=== PATIENT | female | born 1990 | race Caucasian/White ===

== ENCOUNTER 2016-11-27 09:53 | Outpatient (CLI) | payer OTHER ==
[~2016-11-27] VITALS: Ht 160 cm; Wt 96.0 kg
[~2016-11-27 09:53] MED LIST: ASPIR 8181 M1 PO; BENADRYL25 MG PO; CIPRO500 MG PO; ENDOCET 5-3251 EACH PO; IBUPROFEN800 MG PO; PRENATAL TABLE1 EAC3 PO; SPRINTEC1 EACH PO
[2016-11-27 11:05] LABS: EOSINOPHIL (%) 0 % (0-5); HEMATOCRIT 30.9 % (36.0-46.0); IMMATURE GRANULOCYTE (%) 0.8 % (0.0-0.7); IMMATURE GRANULOCYTE COUNT 0.1 K/uL; INSTRUMENT ABS NEUTROPHIL CT 15.5 K/uL; LYMPHOCYTE COUNT 0.6 K/uL (1.0-2.8); MCH 28.3 PG (29.0-34.0); MCV 83.3 FL (83-99); MEAN PLAT.VOLUME 10.7 uM^3 (9.5-12.4); MONOCYTE (%) 4.6 % (3-12); MONOCYTE COUNT 0.8 K/uL (0-0.8); NEUTROPHIL (%) 90.9 % (45-76); NEUTROPHIL COUNT 15.5 K/uL (1.8-6.4); PLATELET COUNT 162 K/uL (156-360); RBC DIS.WIDTH-CV 13.1 % (11.8-14.6); RBC DIS.WIDTH-SD 39.9 % (39-53); RED BLOOD COUNT 3.71 M/uL (3.80-5.20); WHITE BLOOD COUNT 17.1 K/uL (4.1-10.2)
[2016-11-27 11:10] LABS: ADD MIUA? YES; BILIRUBIN NEGATIVE; BLOOD LARGE; COLOR YELLOW ((YELLOW)); GLUCOSE (STRIP) NEGATIVE; KETONES 5; LEUKOCYTES TRACE; NITRITE NEGATIVE; PROTEIN (STRIP) 30; SPECIFIC GRAVITY 1.019 (1.000-1.030); UROBILINOGEN 0.2 MG/DL (0.2-1.0)
[2016-11-27 11:19] LABS: BACTERIA RARE /HPF; EPITHELIAL CELLS 1+ /HPF; MUCUS TRACE /LPF; RED BLOOD CELLS 20-30 /HPF (0-5); UCUL ADDED? NO; URIC ACID CRYSTALS 1+ /HPF
[2016-11-27 11:19] LABS: CHLORIDE 104 mEq/L (99-109); POTASSIUM 3.1 mEq/L (3.7-5.4); SODIUM 130 mEq/L (136-147)
[2016-11-27 11:22] LABS: GLUCOSE 113 mg/dL (70-99)
[2016-11-27 11:23] LABS: ANION GAP 9 MEQ/L (2-14); TOTAL BILIRUBIN 0.5 mg/dL (0.0-1.0)
[2016-11-27 11:25] LABS: ALKALINE PHOSPHATASE 72 IU/L (3-129); GFR ESTIMATE (CALCULATED) > 59 mL/min/
[2016-11-27 11:26] LABS: UREA NITROGEN (BUN) 5 mg/dL (9-23)
[2016-11-27 14:05] VITALS: BP 103/61
[2016-11-27] MEDS ORDERED: ASPIR 8181 M1 PO (14:08)
[2016-11-27 19:30] VITALS: BP 93/53
[2016-11-27 23:24] VITALS: BP 101/53
[2016-11-28 03:15] VITALS: BP 108/59
[2016-11-28 06:15] LABS: EOSINOPHIL (%) 1.1 % (0-5); EOSINOPHIL COUNT 0.1 K/uL (0-0.3); HEMATOCRIT 29.2 % (36.0-46.0); IMMATURE GRANULOCYTE (%) 0.6 % (0.0-0.7); IMMATURE GRANULOCYTE COUNT 0.1 K/uL; INSTRUMENT ABS NEUTROPHIL CT 8.8 K/uL; LYMPHOCYTE COUNT 1.4 K/uL (1.0-2.8); MCH 28.4 PG (29.0-34.0); MCHC 33.2 G/DL (30.0-36.0); MCV 85.6 FL (83-99); MEAN PLAT.VOLUME 10.4 uM^3 (9.5-12.4); MONOCYTE (%) 6.2 % (3-12); MONOCYTE COUNT 0.7 K/uL (0-0.8); NEUTROPHIL (%) 79.3 % (45-76); NEUTROPHIL COUNT 8.8 K/uL (1.8-6.4); PLATELET COUNT 153 K/uL (156-360); RBC DIS.WIDTH-CV 13.6 % (11.8-14.6); RBC DIS.WIDTH-SD 41.7 % (39-53); RED BLOOD COUNT 3.41 M/uL (3.80-5.20); WHITE BLOOD COUNT 11.1 K/uL (4.1-10.2)
[2016-11-28 06:41] LABS: ANION GAP 7 MEQ/L (2-14); CHLORIDE 110 MEQ/L (99-109); GFR ESTIMATE (CALCULATED) > 59 mL/min/; SAMPLE HEMOLYSIS CHECK 0; SAMPLE ICTERIC CHECK 0; SAMPLE LIPEMIA CHECK 0; UREA NITROGEN (BUN) 5 mg/dL (9-23)
[2016-11-28 06:43] LABS: GLUCOSE 69 mg/dL (70-99); POTASSIUM 3.8 MEQ/L (3.7-5.4); SODIUM 138 MEQ/L (136-147)
[2016-11-28 06:59] VITALS: BP 97/60
[2016-11-28 11:33] VITALS: BP 100/57
[2016-11-28 14:47] VITALS: BP 104/50
[2016-11-28] MEDS ORDERED: BACTRIM,SEPT1 TABLET PO (15:38)
[2016-11-28] MEDS ORDERED: MACROBID100 MG PO (15:39)
== END 2016-11-28 16:03 | disposition home or self-care (01) ==
LOC: EME 09:53 → LDRP-OP 09:53 → EME 13:51 → EDSTATUS 13:54 → 2WEST 13:54
PROVIDERS: Emergency Medicine; Obstetrics & Gynecology
DX: O23.02 Infections of kidney in pregnancy, second trimester (principal); Z3A.21 21 weeks gestation of pregnancy; O99.342 Other mental disorders complicating pregnancy, second trimester; F41.8 Other specified anxiety disorders; O09.292 Supervision of pregnancy with other poor reproductive or obstetric history, second trimester; O09.892 Supervision of other high risk pregnancies, second trimester
CPT/HCPCS: 59025; 80048; 80053; 81003; 84439; 84443; 84702; 85025; 87040; 87086; 93005; 99281; 99285; G0378; J0696; J7030; J7050

== ENCOUNTER 2016-11-29 22:28 | Outpatient (CLI) | payer OTHER ==
[~2016-11-29] VITALS: Ht 160 cm; Wt 96.7 kg
[~2016-11-29 22:28] MED LIST changes: +BACTRIM,SEPT1 TABLET PO; +MACROBID100 MG PO
[2016-11-29 23:05] LABS: MCH 28.3 PG (29.0-34.0); MCHC 33.6 G/DL (30.0-36.0); MCV 84.2 FL (83-99); MEAN PLAT.VOLUME 10.1 uM^3 (9.5-12.4); PLATELET COUNT 163 K/uL (156-360); RBC DIS.WIDTH-SD 39.8 % (39-53); RED BLOOD COUNT 3.92 M/uL (3.80-5.20); WHITE BLOOD COUNT 8.2 K/uL (4.1-10.2)
[2016-11-29 23:16] LABS: CHLORIDE 105 mEq/L (99-109); POTASSIUM 4.1 mEq/L (3.7-5.4); SODIUM 136 mEq/L (136-147)
[2016-11-29 23:19] LABS: GLUCOSE 83 mg/dL (70-99)
[2016-11-29 23:20] LABS: ANION GAP 12 MEQ/L (2-14)
[2016-11-29 23:21] LABS: TOTAL BILIRUBIN 0.4 mg/dL (0.0-1.0)
[2016-11-29 23:22] LABS: ALKALINE PHOSPHATASE 78 IU/L (3-129); GFR ESTIMATE (CALCULATED) > 59 mL/min/
[2016-11-29 23:23] LABS: UREA NITROGEN (BUN) 7 mg/dL (9-23)
[2016-11-29 23:33] LABS: QUANTITATIVE HCG 11923.9 MIU/ML
[2016-11-30] VITALS (7 sets, daily range): BP systolic 88–118; BP diastolic 50–74
[2016-11-30 00:01] LABS: ADD MIUA? YES; BILIRUBIN NEGATIVE; BLOOD LARGE; COLOR STRAW ((YELLOW)); GLUCOSE (STRIP) NEGATIVE; KETONES NEGATIVE; LEUKOCYTES NEGATIVE; NITRITE NEGATIVE; PROTEIN (STRIP) NEGATIVE; SPECIFIC GRAVITY 1.009 (1.000-1.030); UROBILINOGEN 0.2 MG/DL (0.2-1.0)
[2016-11-30 00:05] LABS: BACTERIA NONE SEEN /HPF; EPITHELIAL CELLS RARE /HPF; MUCUS TRACE /LPF; UCUL ADDED? NO; WHITE BLOOD CELLS 0-5 /HPF (0-5)
[2016-11-30 22:25] LABS: CANDIDA DNA PROBE NEGATIVE; GARDNERELLA DNA PROBE NEGATIVE; INTERNAL CONTROL VALID? YES
[2016-12-01 03:04] VITALS: BP 93/52
[2016-12-01 07:51] VITALS: BP 107/55
[2016-12-01 10:59] VITALS: BP 102/63
[2016-12-01 14:59] VITALS: BP 119/67
[2016-12-01 20:05] VITALS: BP 114/67
[2016-12-02] MEDS ORDERED: PROGESTERONE200 MG VG (05:43)
[2016-12-02 06:04] VITALS: BP 97/48
== END 2016-12-02 08:50 | disposition home or self-care (01) ==
LOC: LDRP-OP 22:28 → EME 22:28 → 2WEST 11-30 04:54
PROVIDERS: Obstetrics & Gynecology
DX: O23.02 Infections of kidney in pregnancy, second trimester (principal); Z3A.21 21 weeks gestation of pregnancy; O26.872 Cervical shortening, second trimester; O99.012 Anemia complicating pregnancy, second trimester
CPT/HCPCS: 59025; 76770; 76805; 80053; 81003; 84702; 85027; 87086; 87480; 87510; 87660; 99281; 99285; G0378; J0696; J2405; J7030; J7050; J7120

== ENCOUNTER 2017-04-04 07:01 | Inpatient (IN) | payer OTHER ==
[~2017-04-04] VITALS: Ht 160 cm; Wt 102.5 kg
[2017-04-04] VITALS (25 sets, daily range): BP systolic 111–163; BP diastolic 58–97
[~2017-04-04 07:01] MED LIST changes: +PROGESTERONE200 MG VG
[2017-04-04 09:36] LABS: BASOPHIL COUNT 0.1 K/uL (0-0.1); EOSINOPHIL (%) 1.1 % (0-5); EOSINOPHIL COUNT 0.1 K/uL (0-0.3); HEMATOCRIT 30.2 % (36.0-46.0); IMMATURE GRANULOCYTE (%) 0.7 % (0.0-0.7); IMMATURE GRANULOCYTE COUNT 0.1 K/uL; INSTRUMENT ABS NEUTROPHIL CT 6.8 K/uL; LYMPHOCYTE COUNT 2.1 K/uL (1.0-2.8); MCH 25.8 PG (29.0-34.0); MCHC 32.8 G/DL (30.0-36.0); MCV 78.9 FL (83-99); MEAN PLAT.VOLUME 11.3 uM^3 (9.5-12.4); MONOCYTE (%) 7.2 % (3-12); MONOCYTE COUNT 0.7 K/uL (0-0.8); NEUTROPHIL (%) 69.1 % (45-76); NEUTROPHIL COUNT 6.8 K/uL (1.8-6.4); PLATELET COUNT 178 K/uL (156-360); RBC DIS.WIDTH-SD 36.8 % (39-53); RED BLOOD COUNT 3.83 M/uL (3.80-5.20); WHITE BLOOD COUNT 9.8 K/uL (4.1-10.2)
[2017-04-05] VITALS (11 sets, daily range): BP systolic 117–138; BP diastolic 57–87
[2017-04-06 07:20] LABS: BASOPHIL COUNT 0.1 K/uL (0-0.1); EOSINOPHIL (%) 1.5 % (0-5); EOSINOPHIL COUNT 0.2 K/uL (0-0.3); HEMATOCRIT 29.1 % (36.0-46.0); IMMATURE GRANULOCYTE (%) 0.7 % (0.0-0.7); IMMATURE GRANULOCYTE COUNT 0.1 K/uL; LYMPHOCYTE COUNT 1.9 K/uL (1.0-2.8); MCH 25.3 PG (29.0-34.0); MCHC 31.6 G/DL (30.0-36.0); MCV 79.9 FL (83-99); MEAN PLAT.VOLUME 11.2 uM^3 (9.5-12.4); MONOCYTE (%) 4.9 % (3-12); MONOCYTE COUNT 0.6 K/uL (0-0.8); NEUTROPHIL (%) 77.9 % (45-76); PLATELET COUNT 182 K/uL (156-360); RBC DIS.WIDTH-CV 13.3 % (11.8-14.6); RBC DIS.WIDTH-SD 37.8 % (39-53); RED BLOOD COUNT 3.64 M/uL (3.80-5.20); WHITE BLOOD COUNT 12.8 K/uL (4.1-10.2)
== END 2017-04-06 12:40 | disposition home or self-care (01) | DRG 774 ==
LOC: LDRP-OP → 2WEST 07:02 → LDRP-OP 08:25 → 2WEST 04-05 04:07 → LDRP-OP 05-11 16:37
PROVIDERS: Advanced Practice Midwife
PROC: 10907ZC Drainage of Amniotic Fluid, Therapeutic from Products of Conception, Via Natural or Artificial Opening (ICD-10-PCS; principal; 2017-04-05)
PROC: 10E0XZZ Delivery of Products of Conception, External Approach (ICD-10-PCS; principal; 2017-04-05)
PROC: 0U7C7ZZ Dilation of Cervix, Via Natural or Artificial Opening (ICD-10-PCS; principal; 2017-04-05)
PROC: 3E0R3BZ Introduction of Anesthetic Agent into Spinal Canal, Percutaneous Approach (ICD-10-PCS; principal; 2017-04-05)
PROC: 00HU33Z Insertion of Infusion Device into Spinal Canal, Percutaneous Approach (ICD-10-PCS; principal; 2017-04-05)
DX: O26.873 Cervical shortening, third trimester (principal); O75.3 Other infection during labor; O98.82 Other maternal infectious and parasitic diseases complicating childbirth; O99.02 Anemia complicating childbirth; O99.344 Other mental disorders complicating childbirth; O76 Abnormality in fetal heart rate and rhythm complicating labor and delivery; O99.214 Obesity complicating childbirth; N13.30 Unspecified hydronephrosis; O99.89 Other specified diseases and conditions complicating pregnancy, childbirth and the puerperium; Z3A.39 39 weeks gestation of pregnancy; Z37.0 Single live birth; Z82.5 Family history of asthma and other chronic lower respiratory diseases; Z87.891 Personal history of nicotine dependence; Z68.30 Body mass index [BMI] 30.0-30.9, adult
CPT/HCPCS: 85025; 86850; 86900; 86901; C1726; C1755; G0378; J0595; J7120